=== PATIENT | female | born 1990 | race African-American/Black ===

== ENCOUNTER 2020-08-07 19:32 | Emergency (ER) | payer MEDICAID ==
[~2020-08-07] VITALS: Ht 149.9 cm; Wt 54.0 kg
[2020-08-07] MEDS ORDERED: TETRACAINE 0.5% OPHTH DROPS 4ML LEFTEYE ONE (20:45)
[2020-08-07] MEDS ORDERED: FLUORESCEIN SODIUM 1MG/STRIP LEFTEYE ONE (20:45)
[2020-08-07 21:20] VITALS: BP 135/86
== END 2020-08-07 21:28 | disposition home or self-care (01) ==
LOC: ER 19:32
DX: H10.9 Unspecified conjunctivitis (principal); B30.9 Viral conjunctivitis, unspecified; H10.12 Acute atopic conjunctivitis, left eye
CPT/HCPCS: 99283

== ENCOUNTER 2021-04-13 23:12 | Emergency (ER) | payer MEDICAID ==
[~2021-04-13] VITALS: Ht 149.9 cm; Wt 61.0 kg
[2021-04-13 23:15] VITALS: BP 153/105
[2021-04-13 23:43] LABS: CLARITY URINE CLOUDY (CLEAR); COLOR URINE YELLOW (YELLOW); KETONES URINE NEGATIVE (NEGATIVE); LEUKOCYTE ESTERASE URINE TRACE (NEGATIVE); NITRITE URINE NEGATIVE (NEGATIVE); OCCULT BLOOD URINE 2+ (NEGATIVE); PH URINE >=9.0 (4.5-8.0); PROTEIN URINE TRACE (NEGATIVE); SPECIFIC GRAVITY URINE 1.013 (1.005-1.030); UROBILINOGEN URINE 0.2 E.U./dL (0.2-1.0)
== END 2021-04-14 02:10 | disposition left against medical advice (07) ==
LOC: ER 23:12
DX: Z53.21 Procedure and treatment not carried out due to patient leaving prior to being seen by health care provider (principal)
CPT/HCPCS: 81003; 81025

== ENCOUNTER 2021-04-15 09:03 | Inpatient (IN) | payer MEDICAID ==
[~2021-04-15] VITALS: Ht 149.9 cm; Wt 59.0 kg
[2021-04-15] MEDS ORDERED: MORPHINE SULFATE 4 MG/ML CPJ (NOT FOR IM USE) IV STA (10:18)
[2021-04-15] MEDS ORDERED: SODIUM CHLORIDE 0.9% 1,000 ML IV ONE (10:30)
[2021-04-15 10:45] LABS: BASOPHILS % 0.5 % (0.0-2.0); EOSINOPHILS % 5.5 % (0.0-5.0); HEMATOCRIT. 41.9 % (36.0-48.0); HEMOGLOBIN. 14.3 g/dL (12.0-16.0); LYMPHOCYTES % 27.8 % (20.0-50.0); MEAN CORPUSCULAR VOLUME 87.6 fL (81.0-99.0); MEAN PLATELET VOLUME 7.8 fl (7.4-10.4); MONOCYTES % 6.4 % (2.0-8.0); NEUTROPHILS % 59.8 % (40.0-76.0); PLATELET 293 x1000/uL (130-400); RED BLOOD CELL COUNT 4.78 mill/uL (4.2-5.4); RED CELL DISTRIBUTION WIDTH 12.9 % (11.6-14.6)
[2021-04-15 10:54] LABS: CHLORIDE 118 mEq/L (98-107)
[2021-04-15 13:06] LABS: CLARITY URINE CLEAR (CLEAR); COLOR URINE YELLOW (YELLOW); KETONES URINE NEGATIVE (NEGATIVE); LEUKOCYTE ESTERASE URINE TRACE (NEGATIVE); NITRITE URINE NEGATIVE (NEGATIVE); OCCULT BLOOD URINE 2+ (NEGATIVE); PROTEIN URINE NEGATIVE (NEGATIVE); SPECIFIC GRAVITY URINE 1.013 (1.005-1.030); UROBILINOGEN URINE 0.2 E.U./dL (0.2-1.0)
[2021-04-15] MEDS ORDERED: IOHEXOL-300 100 ML BOTTLE ONE (13:23)
[2021-04-15] MEDS ORDERED: CEFTRIAXONE 1 G PREMIX 50 ML IV ONE (13:30)
[2021-04-15] MEDS ORDERED: ONDANSETRON HCL 4MG/2ML INJ IV ONE (14:45)
[2021-04-15] MEDS ORDERED: MORPHINE SULFATE 2 MG/ML CPJ (NOT FOR IM USE) IV PRN (15:00)
[2021-04-15] MEDS ORDERED: HYDROCODONE/ACETAMINOPHEN 5/325MG TABLET PO PRN (15:00)
[2021-04-15] MEDS ORDERED: GUAIFENESIN 200MG/10ML SUGAR FREE UDC PO PRN (15:00)
[2021-04-15] MEDS ORDERED: CLONIDINE 0.1MG TABLET PO PRN (15:00)
[2021-04-15] MEDS ORDERED: ONDANSETRON HCL 4MG/2ML INJ IV PRN (15:00)
[2021-04-15] MEDS ORDERED: DOCUSATE SODIUM 100MG CAPSULE PO PRN (15:00)
[2021-04-15] MEDS ORDERED: NA PHOS,M-B/NA PHOS,DI-BA ENEMA 118ML PR PRN (15:00)
[2021-04-15] MEDS ORDERED: DIPHENHYDRAMINE 50MG/ML VIAL IV PRN (15:00)
[2021-04-15] MEDS ORDERED: IPRATROPIUM/ALBUTEROL 0.5-3(2.5)MG/3ML NEB NEB PRN (15:00)
[2021-04-15] MEDS ORDERED: LORAZEPAM 2MG/ML CPJ IV PRN (15:00)
[2021-04-15] MEDS ORDERED: MAGNESIUM/ALUMINUM HYDROXIDE/SIMETHICONE 30ML UDC PO PRN (15:00)
[2021-04-15] MEDS ORDERED: ACETAMINOPHEN 325MG TABLET PO PRN (15:00)
[2021-04-15] MEDS: DEXT 5%/0.45% NACL 1000ML 1,000 ML IV SCH (15:43)
[2021-04-15] MEDS: ENOXAPARIN 40MG/0.4ML SYR SUBCUT SCH (15:44)
[2021-04-15 18:30] VITALS: BP 135/71
[2021-04-15 20:00] VITALS: BP_SYST 143; BP_DIAS 68; BP_DIAS 95
[2021-04-15] MEDS ORDERED: METRONIDAZOLE 500 MG PREMIX 100 ML IV SCH (20:00)
[2021-04-15] MEDS: METRONIDAZOLE 500 MG PREMIX 100 ML IV SCH (22:34)
[2021-04-16] MEDS ORDERED: LEVOFLOXACIN 500MG PREMIX 100 ML IV SCH
[2021-04-16 00:04] VITALS: BP 112/61
[2021-04-16] MEDS: DEXT 5%/0.45% NACL 1000ML 1,000 ML IV SCH ×3 (01:17→21:00)
[2021-04-16] MEDS: LEVOFLOXACIN 500MG PREMIX 100 ML IV SCH (01:21)
[2021-04-16] MEDS ORDERED: POTASSIUM CHLORIDE INJ 40 MEQ in DEXT 5% WATER 500 ML IV NR (02:00)
[2021-04-16 04:00] VITALS: BP 112/61
[2021-04-16] MEDS: METRONIDAZOLE 500 MG PREMIX 100 ML IV SCH ×3 (06:10→23:06)
[2021-04-16 08:00] VITALS: BP 133/88
[2021-04-16 11:04] LABS: CHLORIDE 108 mEq/L (98-107)
[2021-04-16 12:00] VITALS: BP 137/97
[2021-04-16] MEDS: ENOXAPARIN 40MG/0.4ML SYR SUBCUT SCH (14:25)
[2021-04-16 16:00] VITALS: BP 139/84
[2021-04-16 20:00] VITALS: BP 147/99
[2021-04-17] VITALS: BP 120/75
[2021-04-17 04:00] VITALS: BP 110/88
[2021-04-17] MEDS: METRONIDAZOLE 500 MG PREMIX 100 ML IV SCH ×2 (05:49→14:26)
[2021-04-17 06:32] LABS: BASOPHILS % 0.4 % (0.0-2.0); EOSINOPHILS % 5.2 % (0.0-5.0); HEMATOCRIT. 37.5 % (36.0-48.0); HEMOGLOBIN. 12.9 g/dL (12.0-16.0); LYMPHOCYTES % 44.6 % (20.0-50.0); MEAN CORPUSCULAR HEMOGLOBIN 29.9 pg (28.0-32.0); MEAN PLATELET VOLUME 7.5 fl (7.4-10.4); MONOCYTES % 7.6 % (2.0-8.0); NEUTROPHILS % 42.2 % (40.0-76.0); PLATELET 259 x1000/uL (130-400); RED BLOOD CELL COUNT 4.31 mill/uL (4.2-5.4); RED CELL DISTRIBUTION WIDTH 12.8 % (11.6-14.6)
[2021-04-17 07:02] LABS: CHLORIDE 110 mEq/L (98-107)
[2021-04-17] MEDS: DEXT 5%/0.45% NACL 1000ML 1,000 ML IV SCH (07:55)
[2021-04-17 08:00] VITALS: BP 107/68
[2021-04-17] MEDS: LEVOFLOXACIN 500MG PREMIX 100 ML IV SCH (08:03)
[2021-04-17] MEDS ORDERED: POTASSIUM CHLORIDE 20MEQ TABLET SR PO NR (09:45)
[2021-04-17 12:00] VITALS: BP 125/78
[2021-04-17 14:58] VITALS: BP 125/78
[2021-04-17] MEDS: ENOXAPARIN 40MG/0.4ML SYR SUBCUT SCH (15:30)
[2021-04-17 16:00] VITALS: BP 139/96
[2021-04-18] MEDS ORDERED: METRONIDAZOLE 500MG TABLET PO SCH (06:00)
[2021-04-18] MEDS ORDERED: LEVOFLOXACIN 500MG TABLET PO SCH (11:00)
== END 2021-04-17 15:55 | disposition home or self-care (01) ==
LOC: ER 09:13 → 6EST 14:40 → ENRESERV 17:52
PROVIDERS: ADMIT Internal Medicine; ATTEND Internal Medicine
DX: K81.0 Acute cholecystitis (principal); E87.0 Hyperosmolality and hypernatremia; R65.10 Systemic inflammatory response syndrome (SIRS) of non-infectious origin without acute organ dysfunction; E87.8 Other disorders of electrolyte and fluid balance, not elsewhere classified; R64 Cachexia; E44.1 Mild protein-calorie malnutrition; E86.0 Dehydration; E87.6 Hypokalemia; I10 Essential (primary) hypertension; R74.01 Elevation of levels of liver transaminase levels; F17.200 Nicotine dependence, unspecified, uncomplicated; Z68.26 Body mass index [BMI] 26.0-26.9, adult
CPT/HCPCS: 36415; 74177; 76705; 80048; 80053; 81003; 85025; 99285; J0696; J1650; J1956; J2270; J3480; J3490; J7030; J7060; Q9967